=== PATIENT | male | born 1990 | race Caucasian/White ===

== ENCOUNTER 2019-01-31 00:57 | Emergency (ER) | payer OTHER ==
[2019-01-31 01:08] VITALS: BP 130/79; PULSE 81; RESP 20; TEMP 98.2
== END 2019-01-31 01:55 | disposition home or self-care (01) ==
LOC: EC 00:57
DX: Z02.9 Encounter for administrative examinations, unspecified (principal)

== ENCOUNTER 2019-04-14 20:11 | Emergency (ER) | payer OTHER ==
[2019-04-14 20:25] VITALS: BP 158/86; PULSE 98; RESP 18; TEMP 98.1
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
== END 2019-04-14 21:08 | disposition home or self-care (01) ==
LOC: EC 20:11
DX: Z02.9 Encounter for administrative examinations, unspecified (principal); F17.200 Nicotine dependence, unspecified, uncomplicated; Z86.14 Personal history of Methicillin resistant Staphylococcus aureus infection
CPT/HCPCS: 82075; 99283

== ENCOUNTER 2019-04-27 23:01 | Emergency (ER) | payer OTHER ==
[2019-04-27 23:05] VITALS: BP 169/85; PULSE 91; RESP 20; TEMP 98.2
== END 2019-04-28 00:04 ==
LOC: EC 23:01
DX: Z02.9 Encounter for administrative examinations, unspecified (principal)

== ENCOUNTER 2019-05-10 22:52 | Emergency (ER) | payer BC ==
[2019-05-10 23:00] VITALS: BP 165/65; PULSE 82; RESP 18; TEMP 99.2
[2019-05-10] MEDS ORDERED: ACET/COD 300 MG/30 MG STARTER PACK 6 TAB BTL PO STA (23:09)
[2019-05-10] MEDS ORDERED: PENICILLIN VK 500MG STARTER 4 TAB BTL PO STA (23:09)
--- NOTE | 2019-05-10 23:09 | ED ---
ENT HPI - General Source: patient, RN notes reviewed, old records reviewed Mode of arrival: ambulatory Limitations: no limitations <Cassidy Farah - Last Filed: 05/10/19 23:51> <Gladys Garza - Last Filed: 05/18/19 20:43> - General Chief complaint: Dental/Oral Stated complaint: Jaw Pain Time Seen by Provider: 05/10/19 23:00 - History of Present Illness Initial comments: Patient is a pleasant 28-year-old male. Patient reports that he's been having some left upper jaw pain. Patient reports that he has a history of poor dentition. Patient reports that he has multiple broken teeth and dental caries. He reports he's trying to follow-up with a dentist but does not have an appointment until the end of May. He denies any fevers or chills or significant facial or jaw swelling. Denies trismus or foul taste in mouth. (Cassidy Farah) - Related Data Previous Rx's Medication Instructions Recorded Penicillin V Potassium [Pen Vee K] 500 mg PO QID #40 tablet 05/10/19 Allergies Allergy/AdvReac Type Severity Reaction Status Date / Time No Known Allergies Allergy Verified 05/10/19 22:59 Review of Systems ROS Other: All systems not noted in ROS Statement are negative. <Cassidy Farah - Last Filed: 05/10/19 23:51> ROS Other: All systems not noted in ROS Statement are negative. <Gladys Garza - Last Filed: 05/18/19 20:43> ROS Statement: Those systems with pertinent positive or pertinent negative responses have been documented in the HPI. Past Medical History Past Medical History: No Reported History History of Any Multi-Drug Resistant Organisms: MRSA Date of last positivie culture/infection: 2019 MDRO Source:: right hand, Past Surgical History: No Surgical Hx Reported Additional Past Surgical History / Comment(s): right middle finger, Past Psychological History: No Psychological Hx Reported Smoking Status: Current every day smoker Past Alcohol Use History: Rare Past Drug Use History: None Reported <Cassidy Farah - Last Filed: 05/10/19 23:51> General Exam Limitations: no limitations General appearance: alert, in no apparent distress Head exam: Present: atraumatic, normocephalic, normal inspection Eye exam: Present: normal appearance, PERRL, EOMI. Absent: scleral icterus, conjunctival injection, periorbital swelling ENT exam: Present: normal exam, mucous membranes moist. Absent: normal oropharynx (Dental caries and broken teeth. He has evidence of broken tooth #1415 and 13 with multiple dental caries.) Neck exam: Present: normal inspection. Absent: tenderness, meningismus, lymphadenopathy Respiratory exam: Present: normal lung sounds bilaterally. Absent: respiratory distress, wheezes, rales, rhonchi, stridor Cardiovascular Exam: Present: regular rate, normal rhythm, normal heart sounds. Absent: systolic murmur, diastolic murmur, rubs, gallop, clicks GI/Abdominal exam: Present: soft, normal bowel sounds. Absent: distended, tenderness, guarding, rebound, rigid Back exam: Present: normal inspection Neurological exam: Present: alert, oriented X3, CN II-XII intact <Cassidy Farah - Last Filed: 05/10/19 23:51> - General Exam Comments Initial Comments: This is a 28-year-old male. Alert and oriented 3. Patient appears in no distress. (Cassidy Farah) Course Vital Signs 05/10/19 22:56 Temperature 99.2 F Pulse Rate 82 Respiratory 18 Rate Blood Pressure 165/65 O2 Sat by Pulse 97 Oximetry Medical Decision Making <Cassidy Farah - Last Filed: 05/10/19 23:51> <Gladys Garza - Last Filed: 05/18/19 20:43> - Medical Decision Making 28-year-old male presented today for evaluation for dental pain. Multiple dental caries. He has multiple broken teeth. No drainable abscess at this time. He is digitally erythema over the left upper teeth. In has some signs of infection over tooth #13 1415. I discussed with the Patient on antibiotics. Discussed and temperature medicine following up with dental clinic. All questions were answered return parameters were discussed. (Cassidy Farah) I was available for consultation in the emergency department. The history and physical exam were done by the midlevel provider. I was consulted for this patients care. I reviewed the case with the midlevel provider and based on their presentation of the patient, I agree with the assessment, medical decision making and plan of care as documented. There was no identifiable drainable abscess. No signs of paloma angina. Chart was dictated using [employer] dictation software. Attempts were made to correct any dictation errors however some typographical errors may persist. (Gladys Garza) Disposition Is patient prescribed a controlled substance at d/c from ED?: No Time of Disposition: 23:08 <Cassidy Farah - Last Filed: 05/10/19 23:51> <Gladys Garza - Last Filed: 05/18/19 20:43> Clinical Impression: Dental caries, Pain, dental Disposition: HOME SELF-CARE Condition: Good Instructions (If sedation given, give patient instructions): Toothache (ED) Additional Instructions: [facility] [address] [place] [address] [phone] (existing clients only) For new clients: [phone] 1st consult: $50 (includes Xrays) Usually 30% less then private dentist for visits after. [employer] Have to pay $50 for Xrays anmd rest is covered. [phone] Prescriptions: Penicillin V Potassium [Pen Vee K] 500 mg PO QID #40 tablet Referrals: Jeanmarie Colmenares MD [Primary Care Provider] - 1-2 days
== END 2019-05-10 23:18 | disposition home or self-care (01) ==
LOC: EC 22:52
DX: K02.9 Dental caries, unspecified (principal); K08.89 Other specified disorders of teeth and supporting structures; S02.5XXA Fracture of tooth (traumatic), initial encounter for closed fracture; F17.200 Nicotine dependence, unspecified, uncomplicated; X58.XXXA Exposure to other specified factors, initial encounter
CPT/HCPCS: 99283

== ENCOUNTER 2019-08-18 19:44 | Emergency (ER) | payer OTHER ==
[2019-08-18 20:43] VITALS: BP 132/84; PULSE 86; RESP 20; TEMP 98
== END 2019-08-18 22:00 | disposition home or self-care (01) ==
LOC: EC 19:44
DX: Z02.9 Encounter for administrative examinations, unspecified (principal)

== ENCOUNTER → 2022-05-10 | Outpatient (CLI) | payer BC | END | disposition home or self-care (01) | LOC: LABWHC1 12:42 | DX: Z53.9 Procedure and treatment not carried out, unspecified reason (principal) ==